=== PATIENT | male | born 1995 | race Caucasian/White ===

== ENCOUNTER 2024-05-20 18:24 | Emergency (ER) | payer OTHER ==
[~2024-05-20] VITALS: Ht 193 cm; Wt 152.0 kg
[2024-05-20 18:52] VITALS: BP 133/70; PULSE 86; RESP 14; TEMP 97; O2SAT 97
[2024-05-20] MEDS ORDERED: IBUP-2213 PO (20:18)
[2024-05-20] MEDS ORDERED: METH-1681 PO (20:18)
[2024-05-20] MEDS ORDERED: LID5T TP (20:18)
== END 2024-05-20 20:33 | disposition home or self-care (01) ==
LOC: MED 18:24
DX: S16.1XXA Strain of muscle, fascia and tendon at neck level, initial encounter (principal); Z79.899 Other long term (current) drug therapy; V89.2XXA Person injured in unspecified motor-vehicle accident, traffic, initial encounter; Y93.89 Activity, other specified; Y92.89 Other specified places as the place of occurrence of the external cause; Y99.8 Other external cause status
CPT/HCPCS: 99283